=== PATIENT | female | born 1965 | race Two or more races ===

== ENCOUNTER 2017-08-27 10:37 | Emergency (ER) | payer BC ==
[~2017-08-27] VITALS: Ht 175.3 cm; Wt 113.4 kg
[2017-08-27 10:46] VITALS: BP 169/99
--- NOTE | 2017-08-27 10:46 | NUR ---
A/OX4, AMBULATORY IN A STEADY GAIT TO ED BED 11 C/O EPISODES OF HIGH BP SINCE SATURDAY. C/O HEADACHE, NAUSEA. PATIENT WAS SEEN BY PMD TODAY AND WAS SENT HERE TO ER FOR EVAL DUE TO HIGH BP. NAD RR EVEN AND UNLABORED.DENIES CP/SOB. WILL CONT TO MONITOR
== END 2017-08-27 12:38 | disposition home or self-care (01) ==
LOC: ER 10:40
DX: R03.0 Elevated blood-pressure reading, without diagnosis of hypertension (principal); F32.9 Major depressive disorder, single episode, unspecified
CPT/HCPCS: A4606; Z7610

== ENCOUNTER 2017-08-29 09:39 | Outpatient (CLI) | payer BC ==
[2017-08-29 11:00] LABS: BASOPHILS % (AUTO) 0.6 % (0.0-2.0); HEMATOCRIT 43 % (33-45); HEMOGLOBIN 14.7 g/dL (11.5-14.8); LYMPHOCYTES # (AUTO) 1.4 /CMM (0.8-4.8); LYMPHOCYTES % (AUTO) 21.3 % (20.0-44.0); MEAN CORPUSCULAR HGB CONC 34 g/dl (31.0-36.0); MEAN CORPUSCULAR VOLUME 91 fL (82-100); MONOCYTES # (AUTO) 0.5 /CMM (0.1-1.30); MONOCYTES % (AUTO) 8.5 % (2.0-12.0); NEUTROPHILS # (AUTO) 4.3 /CMM (1.8-8.9); NEUTROPHILS % (AUTO) 67.6 % (43.0-81.0); PLATELET COUNT (AUTO) 281 /CMM (150-450); RDW COEFFICIENT OF VARIATION 13.5 (11.5-15.0); RED BLOOD CELL COUNT(AUTO) 4.79 MIL/uL (4.0-5.2); WHITE BLOOD COUNT (AUTO) 6.4 K/uL (4.3-11.0)
[2017-08-29 11:07] LABS: APPEARANCE,URINE CLEAR (CLEAR); BILIRUBIN,URINE NEGATIVE (NEGATIVE); BLOOD, URINE NEGATIVE Ery/uL (NEGATIVE); COLOR,URINE YELLOW (YELLOW); KETONES,URINE NEGATIVE (NEGATIVE); LEUKOCYTE ESTERASE ,URINE NEGATIVE (NEGATIVE); NITRITE, URINE NEGATIVE (NEGATIVE); PH,URINE 6.5 (5.0-8.0); PROTEIN,URINE NEGATIVE (NEGATIVE); UGLUCOSE NEGATIVE (NEGATIVE); UROBILINOGEN,URINE 0.2 EU/dL (0.2)
[2017-08-29 11:21] LABS: ALBUMIN 3.7 g/dL (3.4-5.0); BILIRUBIN,TOTAL 0.6 mg/dL (0.2-1.0); CALCIUM, SERUM 8.5 mg/dL (8.5-10.1); CREATININE 0.7 mg/dL (0.6-1.3); POTASSIUM 3.4 mmol/L (3.5-5.1); TOTAL PROTEIN, SERUM 7.4 g/dL (6.4-8.2)
[2017-08-29 11:34] LABS: THYROID STIMULATING HORMONE 2.95 uIU/mL (0.358-3.74)
[2017-08-30 08:08] LABS: T3, FREE 3.6 pg/mL (2.0-4.4)
== END 2017-08-29 23:59 | disposition home or self-care (01) ==
LOC: LAB 09:39
DX: I10 Essential (primary) hypertension (principal); E55.9 Vitamin D deficiency, unspecified; R53.83 Other fatigue; K21.9 Gastro-esophageal reflux disease without esophagitis; R35.0 Frequency of micturition; R53.81 Other malaise
CPT/HCPCS: 36415; 80053-TC; 80061-TC; 81000-TC; 82306; 84439-TC; 84443-TC; 84481; 85025-TC

== ENCOUNTER 2017-09-26 14:23 | Outpatient (CLI) | payer BC ==
[2017-10-07 16:12] LABS: H. PYLORI AB IgA <9.0 units (0.0-8.9)
== END 2017-09-26 23:59 | disposition home or self-care (01) ==
LOC: LAB 14:23
DX: R74.8 Abnormal levels of other serum enzymes (principal); R10.9 Unspecified abdominal pain; R05 Cough
CPT/HCPCS: 36415; 71045-TC; 80074; 86677

== ENCOUNTER 2018-01-14 16:31 | Emergency (ER) | payer BC ==
[~2018-01-14] VITALS: Ht 175.3 cm; Wt 89.8 kg
--- NOTE | 2018-01-14 16:40 | NUR ---
PT BIB SELF WHO CAME IN DUE TO CHEST PAIN, PATIENT VERBALIZED STARTED AT AROUND 1425 AT WORK. ALERT AND ORIENTED X 4, VERBALLY RESPONSIVE. ON ROOM AIR AND TOLERATED WELL. CONNECTED TO MONITOR. WILL CONTINUE TO MONITOR ACCORDINGLY.
--- NOTE | 2018-01-14 16:45 | NUR ---
DR. RAINEY AT BEDSIDE FOR EVAL.
[2018-01-14] MEDS ORDERED: KETOROLAC TROMETHAMINE INJ 30 MG/ML VIAL IV ONE (17:30)
[2018-01-14 17:43] LABS: BASOPHILS # (AUTO) 0.1 /CMM (0.0-0.2); BASOPHILS % (AUTO) 0.9 % (0.0-2.0); EOSINOPHILS % (AUTO) 1.9 % (0.0-6.0); HEMATOCRIT 41 % (33-45); HEMOGLOBIN 14.1 g/dL (11.5-14.8); LYMPHOCYTES # (AUTO) 1.5 /CMM (0.8-4.8); LYMPHOCYTES % (AUTO) 25.1 % (20.0-44.0); MEAN CORPUSCULAR HGB CONC 34 g/dl (31.0-36.0); MEAN CORPUSCULAR VOLUME 91 fL (82-100); MONOCYTES # (AUTO) 0.5 /CMM (0.1-1.30); NEUTROPHILS # (AUTO) 3.8 /CMM (1.8-8.9); NEUTROPHILS % (AUTO) 64.1 % (43.0-81.0); PLATELET COUNT (AUTO) 280 /CMM (150-450); RED BLOOD CELL COUNT(AUTO) 4.57 MIL/uL (4.0-5.2)
[2018-01-14 17:54] LABS: CALCIUM, SERUM 9.1 mg/dL (8.5-10.1); CARBON DIOXIDE 30 mmol/L (21-32); CHLORIDE 105 mmol/L (98-107); CREATININE 0.7 mg/dL (0.6-1.3); GLUCOSE 94 mg/dL (74-106); INR 0.95 (0.85-1.15); POTASSIUM 3.3 mmol/L (3.5-5.1); SODIUM SERUM 142 mmol/L (136-145); UREA NITROGEN, BLOOD 14 mg/dL (7-18)
[2018-01-14] MEDS ORDERED: KETOROLAC TROMETHAMINE INJ 30 MG/ML VIAL ONE (17:59)
[2018-01-14 18:00] LABS: ALANINE AMINOTRANSFERASE 60 U/L (12-78); ALBUMIN 3.7 g/dL (3.4-5.0); ALKALINE PHOSPHATASE 102 U/L (46-116); ASPARTATE AMINOTRANSFERASE 22 U/L (15-37); BILIRUBIN,DIRECT 0.2 mg/dL (0.0-0.2); BILIRUBIN,TOTAL 0.5 mg/dL (0.2-1.0); TOTAL PROTEIN, SERUM 6.9 g/dL (6.4-8.2); TROPONIN I < 0.017 ng/mL (0.00-0.056)
[2018-01-14 18:23] LABS: D-DIMER 0.19 mg/L(FEU (0.17-0.50)
[2018-01-14 19:13] VITALS: BP 141/70
== END 2018-01-14 19:14 | disposition home or self-care (01) ==
LOC: ER 16:35
DX: R07.89 Other chest pain (principal); F32.9 Major depressive disorder, single episode, unspecified
CPT/HCPCS: 36415; 71045; 80048; 80076; 84484; 85025; 85378; 85730; 93005; 96374; 99285; A4606; J1885; Z7610

== ENCOUNTER 2018-01-27 09:57 | Outpatient (CLI) | payer BC | END 2018-01-27 23:59 | disposition home or self-care (01) | LOC: US 09:57 | DX: K80.20 Calculus of gallbladder without cholecystitis without obstruction (principal) | CPT/HCPCS: 76700-TC ==

== ENCOUNTER 2018-03-18 09:35 | Outpatient (CLI) | payer BC ==
[2018-03-18 11:15] LABS: ALBUMIN 3.6 g/dL (3.4-5.0); BILIRUBIN,TOTAL 0.5 mg/dL (0.2-1.0); CALCIUM, SERUM 8.1 mg/dL (8.5-10.1); CREATININE 0.6 mg/dL (0.6-1.3); POTASSIUM 3.6 mmol/L (3.5-5.1); TOTAL PROTEIN, SERUM 6.9 g/dL (6.4-8.2)
[2018-03-18 11:21] LABS: THYROID STIMULATING HORMONE 2.896 uIU/mL (0.358-3.74)
[2018-03-19 08:10] LABS: AFP, TUMOR MARKER 4.1 ng/mL (0.0-8.3); CARBOHYDRATE AG 19-9 21 U/mL (0-35)
[2018-03-20 12:14] LABS: HEPATITIS Be AB Negative (Negative)
[2018-03-20 16:37] LABS: ANTI-MITOCHONDRIAL AB 7.7 Units (0.0-20.0)
== END 2018-03-18 23:59 | disposition home or self-care (01) ==
LOC: LAB 09:35
PROVIDERS: ATTEND Internal Medicine Gastroenterology
DX: B19.20 Unspecified viral hepatitis C without hepatic coma (principal)
CPT/HCPCS: 36415; 80053-TC; 80061-TC; 82105; 82378; 83516; 84443-TC; 86301; 86704; 86706; 86707; 86709-TC; 87340; 87350; 87806

== ENCOUNTER 2018-04-09 13:25 | Outpatient (CLI) | payer BC ==
[2018-04-09 14:54] LABS: BASOPHILS % (AUTO) 0.7 % (0.0-2.0); EOSINOPHILS % (AUTO) 2.3 % (0.0-6.0); HEMATOCRIT 42 % (33-45); HEMOGLOBIN 14.2 g/dL (11.5-14.8); LYMPHOCYTES # (AUTO) 1.4 /CMM (0.8-4.8); LYMPHOCYTES % (AUTO) 24.5 % (20.0-44.0); MEAN CORPUSCULAR HGB CONC 34 g/dl (31.0-36.0); MEAN CORPUSCULAR VOLUME 92 fL (82-100); MONOCYTES # (AUTO) 0.5 /CMM (0.1-1.30); MONOCYTES % (AUTO) 8.2 % (2.0-12.0); NEUTROPHILS # (AUTO) 3.7 /CMM (1.8-8.9); NEUTROPHILS % (AUTO) 64.3 % (43.0-81.0); PLATELET COUNT (AUTO) 297 /CMM (150-450); RED BLOOD CELL COUNT(AUTO) 4.57 MIL/uL (4.0-5.2); WHITE BLOOD COUNT (AUTO) 5.7 K/uL (4.3-11.0)
[2018-04-09 15:05] LABS: ALBUMIN 4.1 g/dL (3.4-5.0); BILIRUBIN,TOTAL 0.8 mg/dL (0.2-1.0); CALCIUM, SERUM 9.2 mg/dL (8.5-10.1); CREATININE 0.8 mg/dL (0.6-1.3); POTASSIUM 3.5 mmol/L (3.5-5.1); TOTAL PROTEIN, SERUM 7.5 g/dL (6.4-8.2)
[2018-04-09 15:33] LABS: APPEARANCE,URINE CLEAR (CLEAR); BILIRUBIN,URINE NEGATIVE (NEGATIVE); BLOOD, URINE NEGATIVE Ery/uL (NEGATIVE); COLOR,URINE YELLOW (YELLOW); KETONES,URINE NEGATIVE (NEGATIVE); LEUKOCYTE ESTERASE ,URINE NEGATIVE (NEGATIVE); NITRITE, URINE NEGATIVE (NEGATIVE); PH,URINE 6.5 (5.0-8.0); PROTEIN,URINE NEGATIVE (NEGATIVE); UGLUCOSE NEGATIVE (NEGATIVE); UROBILINOGEN,URINE 0.2 EU/dL (0.2)
== END 2018-04-09 23:59 | disposition home or self-care (01) ==
LOC: LAB 13:25
DX: I10 Essential (primary) hypertension (principal); K21.9 Gastro-esophageal reflux disease without esophagitis; R53.81 Other malaise; R53.83 Other fatigue
CPT/HCPCS: 36415; 80053-TC; 81000-TC; 85025-TC; 85610-TC; 85730-TC

== ENCOUNTER → 2018-04-15 | Day surgery (SDC) | payer BC ==
[~2018-04-15] MED LIST: ACETAMINOPHEN 325 MG TABLET PO PRN; ANESTHESIA TRAY IN PYXIS 1 EA TRAY MC ONE; BUPIVACAINE MPF 0.5% W/EPI INJ 30 ML VIAL ONE; CEFAZOLIN SODIUM IV ONE; DEXTROSE ISO IV ONE; HYDROCODONE/APAP 5/325MG 1 EACH TABLET PO PRN; LIDOCAINE HCL/PF 1% 30 ML SDV ONE; MIDAZOLAM HCL 2 MG/2ML VIAL ONE; MORPHINE SULFATE INJ 2 MG/ML DISP.SYRIN IV PRN; ONDANSETRON HCL/PF 4 MG/2 ML VIAL IVP PRN; SCOPOLAMINE HBR 1 EA PATCH.TD72 TD ONE
== END | disposition home or self-care (01) ==
LOC: DS 05:33
PROVIDERS: ATTEND Surgery
DX: K80.10 Calculus of gallbladder with chronic cholecystitis without obstruction (principal); K73.9 Chronic hepatitis, unspecified; I10 Essential (primary) hypertension; Z86.19 Personal history of other infectious and parasitic diseases; Z79.899 Other long term (current) drug therapy; D64.9 Anemia, unspecified
CPT/HCPCS: 47000; 47562; 71045; 88304; 88307; 88313; 93005; A6402 ×2; J0690; J1885; J2001; J2250; J2704; J3490 ×2

== ENCOUNTER 2018-06-03 10:27 | Outpatient (CLI) | payer BC ==
[2018-06-03] MEDS ORDERED: GADODIAMIDE 5 MMOL/10 ML VIAL IJ ONE (10:28)
== END 2018-06-03 23:59 | disposition home or self-care (01) ==
LOC: MRI 10:27
PROVIDERS: ATTEND Internal Medicine Gastroenterology
DX: R16.0 Hepatomegaly, not elsewhere classified (principal); I51.7 Cardiomegaly; Z90.49 Acquired absence of other specified parts of digestive tract
CPT/HCPCS: 74183; A9579

== ENCOUNTER 2018-10-14 12:20 | Outpatient (CLI) | payer BC ==
[2018-10-14 13:26] LABS: BASOPHILS # (AUTO) 0.1 /CMM (0.0-0.2); BASOPHILS % (AUTO) 0.8 % (0.0-2.0); HEMATOCRIT 38 % (33-45); HEMOGLOBIN 13.2 g/dL (11.5-14.8); LYMPHOCYTES # (AUTO) 1.4 /CMM (0.8-4.8); LYMPHOCYTES % (AUTO) 20.7 % (20.0-44.0); MEAN CORPUSCULAR HGB CONC 34 g/dl (31.0-36.0); MEAN CORPUSCULAR VOLUME 91 fL (82-100); MONOCYTES # (AUTO) 0.5 /CMM (0.1-1.30); MONOCYTES % (AUTO) 6.6 % (2.0-12.0); NEUTROPHILS # (AUTO) 4.6 /CMM (1.8-8.9); NEUTROPHILS % (AUTO) 66.9 % (43.0-81.0); PLATELET COUNT (AUTO) 280 /CMM (150-450); RED BLOOD CELL COUNT(AUTO) 4.22 MIL/uL (4.0-5.2); WHITE BLOOD COUNT (AUTO) 6.9 K/uL (4.3-11.0)
[2018-10-14 13:55] LABS: ALBUMIN 3.3 g/dL (3.4-5.0); BILIRUBIN,TOTAL 0.2 mg/dL (0.2-1.0); CALCIUM, SERUM 8.5 mg/dL (8.5-10.1); CREATININE 0.8 mg/dL (0.6-1.3); POTASSIUM 3.7 mmol/L (3.5-5.1); TOTAL PROTEIN, SERUM 6.9 g/dL (6.4-8.2)
[2018-10-15 08:07] LABS: AFP, TUMOR MARKER 2.6 ng/mL (0.0-8.3)
== END 2018-10-14 23:59 | disposition home or self-care (01) ==
LOC: LAB 12:20
DX: B19.20 Unspecified viral hepatitis C without hepatic coma (principal)
CPT/HCPCS: 36415; 80053-TC; 82105; 85025-TC; 85610-TC; 85730-TC

== ENCOUNTER 2018-10-28 10:04 | Outpatient (CLI) | payer BC ==
[2018-10-28 11:02] LABS: ALBUMIN 3.6 g/dL (3.4-5.0); BILIRUBIN,TOTAL 0.3 mg/dL (0.2-1.0); CALCIUM, SERUM 8.3 mg/dL (8.5-10.1); CREATININE 0.9 mg/dL (0.6-1.3); POTASSIUM 3.7 mmol/L (3.5-5.1); TOTAL PROTEIN, SERUM 7.1 g/dL (6.4-8.2)
[2018-10-28 11:19] LABS: BASOPHILS # (AUTO) 0.1 /CMM (0.0-0.2); BASOPHILS % (AUTO) 0.9 % (0.0-2.0); EOSINOPHILS % (AUTO) 2.9 % (0.0-6.0); HEMATOCRIT 39 % (33-45); HEMOGLOBIN 13.6 g/dL (11.5-14.8); LYMPHOCYTES # (AUTO) 1.5 /CMM (0.8-4.8); LYMPHOCYTES % (AUTO) 22.4 % (20.0-44.0); MEAN CORPUSCULAR HGB CONC 35 g/dl (31.0-36.0); MEAN CORPUSCULAR VOLUME 90 fL (82-100); MONOCYTES # (AUTO) 0.4 /CMM (0.1-1.30); MONOCYTES % (AUTO) 6.9 % (2.0-12.0); NEUTROPHILS # (AUTO) 4.3 /CMM (1.8-8.9); NEUTROPHILS % (AUTO) 66.9 % (43.0-81.0); PLATELET COUNT (AUTO) 292 /CMM (150-450); RED BLOOD CELL COUNT(AUTO) 4.33 MIL/uL (4.0-5.2); WHITE BLOOD COUNT (AUTO) 6.5 K/uL (4.3-11.0)
[2018-10-29 08:06] LABS: AFP, TUMOR MARKER 2.7 ng/mL (0.0-8.3)
== END 2018-10-28 23:59 | disposition home or self-care (01) ==
LOC: LAB 10:04
DX: B19.20 Unspecified viral hepatitis C without hepatic coma (principal)
CPT/HCPCS: 36415; 80053-TC; 82105; 85025-TC; 85610-TC; 85730-TC

== ENCOUNTER 2019-03-27 09:18 | Outpatient (CLI) | payer BC | END 2019-03-27 23:59 | disposition home or self-care (01) | LOC: US 09:18 | PROVIDERS: ATTEND Obstetrics & Gynecology | DX: N94.89 Other specified conditions associated with female genital organs and menstrual cycle (principal); F32.9 Major depressive disorder, single episode, unspecified; Z90.710 Acquired absence of both cervix and uterus | CPT/HCPCS: 76856-TC ==

== ENCOUNTER 2019-03-27 10:20 | Outpatient (CLI) | payer BC ==
[2019-03-27 11:14] LABS: APPEARANCE,URINE CLEAR (CLEAR); BASOPHILS % (AUTO) 0.6 % (0.0-2.0); BILIRUBIN,URINE NEGATIVE (NEGATIVE); BLOOD, URINE TRACE-INTA Ery/uL (NEGATIVE); COLOR,URINE YELLOW (YELLOW); EOSINOPHILS % (AUTO) 1.9 % (0.0-6.0); HEMATOCRIT 44 % (33-45); HEMOGLOBIN 14.5 g/dL (11.5-14.8); KETONES,URINE NEGATIVE (NEGATIVE); LEUKOCYTE ESTERASE ,URINE NEGATIVE (NEGATIVE); LYMPHOCYTES # (AUTO) 1.3 /CMM (0.8-4.8); LYMPHOCYTES % (AUTO) 21.3 % (20.0-44.0); MEAN CORPUSCULAR HGB CONC 33 g/dl (31.0-36.0); MEAN CORPUSCULAR VOLUME 92 fL (82-100); MONOCYTES # (AUTO) 0.5 /CMM (0.1-1.30); MONOCYTES % (AUTO) 7.3 % (2.0-12.0); NEUTROPHILS # (AUTO) 4.3 /CMM (1.8-8.9); NEUTROPHILS % (AUTO) 68.9 % (43.0-81.0); NITRITE, URINE NEGATIVE (NEGATIVE); PLATELET COUNT (AUTO) 279 /CMM (150-450); PROTEIN,URINE NEGATIVE (NEGATIVE); RED BLOOD CELL COUNT(AUTO) 4.76 MIL/uL (4.0-5.2); UGLUCOSE NEGATIVE (NEGATIVE); UROBILINOGEN,URINE 0.2 EU/dL (0.2); WHITE BLOOD COUNT (AUTO) 6.2 K/uL (4.3-11.0)
[2019-03-27 11:40] LABS: ALBUMIN 3.9 g/dL (3.4-5.0); BILIRUBIN,TOTAL 0.5 mg/dL (0.2-1.0); CALCIUM, SERUM 8.8 mg/dL (8.5-10.1); CREATININE 0.7 mg/dL (0.6-1.3); MAGNESIUM 2.1 mg/dL (1.8-2.4); POTASSIUM 3.6 mmol/L (3.5-5.1); TOTAL PROTEIN, SERUM 7.6 g/dL (6.4-8.2)
[2019-03-27 11:48] LABS: THYROID STIMULATING HORMONE 2.717 uIU/mL (0.358-3.74); URIC ACID 3.9 mg/dL (2.6-7.2)
[2019-03-28 07:06] LABS: FOLIC ACID 18.7 ng/mL (>3.0)
[2019-03-28 08:12] LABS: LUTEINIZING HORMONE 7.8 mIU/mL (.); PROGESTERONE 4.4 ng/mL (.); PROLACTIN 14.1 ng/mL (4.8-23.3); T3 TOTAL 127 ng/dL (71-180)
== END 2019-03-27 23:59 | disposition home or self-care (01) ==
LOC: LAB 10:20
DX: B19.20 Unspecified viral hepatitis C without hepatic coma (principal); D64.9 Anemia, unspecified; E78.5 Hyperlipidemia, unspecified; R73.9 Hyperglycemia, unspecified; E55.9 Vitamin D deficiency, unspecified; E53.8 Deficiency of other specified B group vitamins; R53.82 Chronic fatigue, unspecified; I10 Essential (primary) hypertension
CPT/HCPCS: 36415; 80053-TC; 80061-TC; 81000-TC; 82306; 82670; 82728-TC; 83002; 83735-TC; 84144; 84146; 84443-TC; 84480; 84550-TC; 85025-TC; 86706; 86803

== ENCOUNTER 2019-05-02 04:01 | Emergency (ER) | payer BC ==
[~2019-05-02] VITALS: Ht 175.3 cm; Wt 97.5 kg
[2019-05-02 04:01] VITALS: BP 130/79
== END 2019-05-02 05:30 | disposition home or self-care (01) ==
LOC: ER 04:02
DX: J06.9 Acute upper respiratory infection, unspecified (principal); F32.9 Major depressive disorder, single episode, unspecified

== ENCOUNTER 2019-05-13 14:17 | Outpatient (CLI) | payer BC | END 2019-05-13 23:59 | disposition home or self-care (01) | LOC: LAB 14:17 | DX: B19.20 Unspecified viral hepatitis C without hepatic coma (principal) | CPT/HCPCS: 36415; 87521 ==

== ENCOUNTER 2019-12-18 13:21 | Outpatient (CLI) | payer BC ==
[2019-12-18 14:49] LABS: APPEARANCE,URINE CLEAR (CLEAR); BILIRUBIN,URINE NEGATIVE (NEGATIVE); BLOOD, URINE NEGATIVE Ery/uL (NEGATIVE); COLOR,URINE YELLOW (YELLOW); KETONES,URINE NEGATIVE (NEGATIVE); LEUKOCYTE ESTERASE ,URINE NEGATIVE (NEGATIVE); NITRITE, URINE NEGATIVE (NEGATIVE); PROTEIN,URINE NEGATIVE (NEGATIVE); UGLUCOSE NEGATIVE (NEGATIVE); UROBILINOGEN,URINE 0.2 EU/dL (0.2)
[2019-12-19 06:08] LABS: HIV SCRN 4G wRFX Non Reactive (Non Reactive)
== END 2019-12-18 23:59 | disposition home or self-care (01) ==
LOC: LAB 13:21
PROVIDERS: ATTEND Obstetrics & Gynecology
DX: N76.0 Acute vaginitis (principal)
CPT/HCPCS: 36415; 80074; 81000-TC; 86592

== ENCOUNTER 2020-01-29 10:50 | Outpatient (CLI) | payer BC | END 2020-01-29 23:59 | disposition home or self-care (01) | LOC: XR 10:50 | DX: M19.011 Primary osteoarthritis, right shoulder (principal); M75.91 Shoulder lesion, unspecified, right shoulder | CPT/HCPCS: 73030-TC ==